=== PATIENT | male | born 1980 | race American Indian/Alaskan Native ===

== ENCOUNTER 2021-12-14 05:06 | Inpatient (IN) | payer MEDICARE, OTHER ==
[2021-12-14 05:18] VITALS: BP 146/71
[2021-12-14 05:59] LABS: Basophils # (Auto) 0.1 K/mm3 (0.0-0.1); Eosinophils % (Auto) 0.1 % (0.0-4.3); Hematocrit 47.2 % (35.5-45.6); Hemoglobin 16.1 gm/dl (11.8-15.2); Lymphocytes # (Auto) 2.7 K/mm3 (1.2-5.4); Lymphocytes % (Auto) 23.6 % (13.4-35.0); Mean Corpuscular HGB Conc 34 % (32-34); Mean Corpuscular Volume 91 fl (84-94); Monocytes # (Auto) 0.9 K/mm3 (0.0-0.8); Monocytes % (Auto) 7.7 % (0.0-7.3); Platelet Count 251 K/mm3 (140-440); Red Blood Count 5.17 M/mm3 (3.65-5.03); Red Cell Distribution Width 13.8 % (13.2-15.2)
--- NOTE | 2021-12-14 06:10 | XRay Report ---
ABDOMEN 4 VIEW(S) INDICATION / CLINICAL INFORMATION: abd pn. COMPARISON: None available. FINDINGS: TUBES / LINES: None. BOWEL GAS PATTERN: Small bowel is dilated with air-fluid levels. The stomach is also distended with f luid. The colon is normal in caliber. FREE AIR / EXTRALUMINAL GAS: None seen. ADDITIONAL FINDINGS: No significant additional findings. IMPRESSION: 1. Abnormal bowel gas pattern concerning for small bowel obstruction. Signer Name: Rob Rizzo MD Signed: 12/14/2021 6:06 AM Workstation Name: [id number]
[2021-12-14] MEDS ORDERED: MORPHINE 4 MG/1 ML INJ IV ONE (06:12)
[2021-12-14] MEDS ORDERED: ONDANSETRON 4 MG/2 ML INJ IV ONE (06:12)
[2021-12-14 06:18] LABS: Alanine Aminotransferase 24 units/L (7-56); Albumin 4.7 g/dL (3.9-5); BUN/Creatinine Ratio 15; Blood Urea Nitrogen 16 mg/dL (9-20); Calcium 9.6 mg/dL (8.4-10.2); Hemolysis Index 21
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
--- NOTE | 2021-12-14 07:23 | Cat Scan Report ---
CT ABDOMEN AND PELVIS WITH IV CONTRAST INDICATION: Pt complains of abd pain, eval for possible S.B.O.. COMPARISON: Radiographs earlier today TECHNIQUE: All CT scans at this facility use dose modulation, automated exposure control, iterative reconstructi on or weight based dosing, when appropriate, to reduce radiation dose to as low as reasonably achieva ble. FINDINGS: Lung Bases: No significant abnormality. Skeletal System: No acute abnormality. ABDOMEN: Liver: Steatosis. Gallbladder: No significant abnormality. Bile Ducts: No significant abnormality. Adrenals: No significant abnormality. Right Kidney: No significant abnormality. Left Kidney: No significant abnormality. Pancreas: No significant abnormality. Spleen: No significant abnormality. Upper GI tract: Stomach is distended with fluid. Proximal and mid small bowel are dilated fluid. Dist al small bowel is collapsed. Lymph Nodes: No significant adenopathy. Aorta: No significant abnormality. Additional Findings: No significant abnormality. PELVIS: Colon: No acute abnormality. Urinary Bladder and Distal Ureters: No significant abnormality. Appendix: No significant abnormality. Lymph Nodes: No significant adenopathy. Additional Findings: None. IMPRESSION: 1. Mid to distal small bowel obstruction. Signer Name: Rob Rizzo MD Signed: 12/14/2021 7:19 AM Workstation Name: [id number]
[2021-12-14 07:34] LABS: Bilirubin,Urine NEG (Negative); Blood,Urine NEG (Negative); Color,Urine Yellow (Yellow); Mucus,Urine FEW /HPF; Protein,Urine >500 mg/dL (Negative)
[2021-12-14] MEDS ORDERED: SODIUM CHLORIDE 0.9% 1000 ML 1,000 ML IV ONE (08:10)
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
[2021-12-14] MEDS ORDERED: ACETAMINOPHEN 325 MG TAB PO PRN (10:00)
[2021-12-14] MEDS ORDERED: NALOXONE 0.4 MG/1 ML INJ IV PRN (10:00)
[2021-12-14] MEDS ORDERED: MORPHINE 2 MG/1 ML INJ IV PRN (10:00)
[2021-12-14] MEDS ORDERED: ONDANSETRON 4 MG/2 ML INJ IV PRN (10:00)
[2021-12-14] MEDS ORDERED: METOCLOPRAMIDE 10 MG/2 ML INJ IV PRN (10:00)
[2021-12-14] MEDS ORDERED: D5W/0.9% NACL 1,000 ML IV SCH (10:00)
[2021-12-14] MEDS: FAMOTIDINE 20 MG/2 ML INJ IV SCH ×2 (10:10→13:09)
--- NOTE | 2021-12-14 12:26 | Consultation ---
History of Present Illness Consult date: 12/14/21 Reason for consult: abdominal pain Chief complaint: Partial small bowel obstruction - History of present illness History of present illness: This is a 41-year-old -[place] gentleman who has had 2 prior surgeries for umbilical hernia repair. He notes that the first 1 was done laparoscopically. The second 1 required an open exploration and larger piece of mesh. He currently is in the emergency room with the complaints of abdominal pain nausea and vomiting. CT of the abdomen is indicating that the patient has a distended stomach with some gastritis. It also is showing distended loop of m id jejunal small bowel with the process being adjacent to his prior repair. Patient had initially requested to be discharged from the emergency room and plan to go home to [place] 4 hours away. After further discussion however he was in agreement to be admitted for IV fluids and NG tube decompression. Medications and Allergies Allergies Allergy/AdvReac Type Severity Reaction Status Date / Time No Known Allergies Allergy Verified 12/14/21 05:08 Active Meds: Active Medications Acetaminophen (Acetaminophen 325 Mg Tab) 650 mg PO Q4H PRN PRN Reason: Pain MILD(1-3)/Fever >100.5/PRADHAN Famotidine (Famotidine 20 Mg/2 Ml Inj) 20 mg IV BID [facility] Last Admin: 12/14/21 10:10 Dose: 20 mg Heparin Sodium (Porcine) (Heparin 5,000 Unit/1 Ml Vial) 5,000 unit SUB-Q Q8HR [facility] Dextrose/Sodium Chloride (D5ns) 1,000 mls @ 75 mls/hr IV DIRECT [facility] Metoclopramide HCl (Metoclopramide 10 Mg/2 Ml Inj) 10 mg IV Q6H PRN PRN Reason: Nausea And Vomiting Morphine Sulfate (Morphine 2 Mg/1 Ml Inj) 2 mg IV Q4H PRN PRN Reason: Pain, Moderate (4-6) Naloxone HCl (Naloxone 0.4 Mg/1 Ml Inj) 0.1 mg IV Q2MIN PRN PRN Reason: Res Rate </= 8 or 02 SAT < 92% Ondansetron HCl (Ondansetron 4 Mg/2 Ml Inj) 4 mg IV Q4H PRN PRN Reason: Nausea And Vomiting Sodium Chloride (Sodium Chloride 0.9% 10 Ml Flush Syringe) 10 ml IV BID [facility] Last Admin: 12/14/21 10:10 Dose: 10 ml Sodium Chloride (Sodium Chloride 0.9% 10 Ml Flush Syringe) 10 ml IV PRN PRN PRN Reason: LINE FLUSH Exam Vital Signs Temp Pulse Resp BP Pulse Ox 98.0 F 97 H 19 146/71 97 12/14/21 05:08 12/14/21 05:08 12/14/21 05:08 12/14/21 05:08 12/14/21 05:08 - General physical appearance Positive: well developed - Eyes Positive: PERRL - Neck Positive: no masses, no bruits, trachea midline - Respiratory Positive: normal expansion - Cardiovascular Rhythm: regular - Extremities Extremities: no ischemia, No edema - Abdomen Abdomen: Present: soft, tender, distended - Neurologic Neurologic: alert and oriented to time, place and person, motor strength and sensation are grossly intact, CN II-XII intact Results - Labs 12/14/21 05:25 12/14/21 05:25 Abnormal lab results 12/14/21 12/14/21 Range/Units 05:25 05:25 WBC 11.4 H (4.5-11.0) K/mm3 RBC 5.17 H (3.65-5.03) M/mm3 Hgb 16.1 H (11.8-15.2) gm/dl Hct 47.2 H (35.5-45.6) % [place] % (Auto) 7.7 H (0.0-7.3) % [place] # (Auto) 0.9 H (0.0-0.8) K/mm3 Chloride 97.9 L (98-107) mmol/L Glucose 159 H (75-100) mg/dL Diabetes panel 12/14/21 Range/Units 05:25 Sodium 139 (137-145) mmol/L Potassium 4.2 (3.6-5.0) mmol/L Chloride 97.9 L (98-107) mmol/L Carbon Dioxide 26 (22-30) mmol/L BUN 16 (9-20) mg/dL Creatinine 1.1 (0.8-1.3) mg/dL Glucose 159 H (75-100) mg/dL Calcium 9.6 (8.4-10.2) mg/dL AST 18 (5-40) units/L ALT 24 (7-56) units/L Alkaline Phosphatase 70 (35-129) units/L Total Protein 7.9 (6.3-8.2) g/dL Albumin 4.7 (3.9-5) g/dL Calcium panel 12/14/21 Range/Units 05:25 Calcium 9.6 (8.4-10.2) mg/dL Albumin 4.7 (3.9-5) g/dL Pituitary panel 12/14/21 Range/Units 05:25 Sodium 139 (137-145) mmol/L Potassium 4.2 (3.6-5.0) mmol/L Chloride 97.9 L (98-107) mmol/L Carbon Dioxide 26 (22-30) mmol/L BUN 16 (9-20) mg/dL Creatinine 1.1 (0.8-1.3) mg/dL Glucose 159 H (75-100) mg/dL Calcium 9.6 (8.4-10.2) mg/dL Adrenal panel 12/14/21 Range/Units 05:25 Sodium 139 (137-145) mmol/L Potassium 4.2 (3.6-5.0) mmol/L Chloride 97.9 L (98-107) mmol/L Carbon Dioxide 26 (22-30) mmol/L BUN 16 (9-20) mg/dL Creatinine 1.1 (0.8-1.3) mg/dL Glucose 159 H (75-100) mg/dL Calcium 9.6 (8.4-10.2) mg/dL Total Bilirubin 0.60 (0.1-1.2) mg/dL AST 18 (5-40) units/L ALT 24 (7-56) units/L Alkaline Phosphatase 70 (35-129) units/L Total Protein 7.9 (6.3-8.2) g/dL Albumin 4.7 (3.9-5) g/dL Assessment and Plan Patient with partial small bowel obstruction. He is advised to not leave but rather to stay for IV fluids NG decompression and observation. He is initially agreeing to do this. We will continue to follow patient with you if he decides to stay.
--- NOTE | 2021-12-14 12:38 | XRay Report ---
ABDOMEN 1 VIEW(S) INDICATION / CLINICAL INFORMATION: NG tube. COMPARISON: None available. FINDINGS: TUBES / LINES: The nasogastric tube is coiled in the distal esophagus. Replacement is recommended. BOWEL GAS PATTERN: No significant abnormality. FREE AIR / EXTRALUMINAL GAS: None seen. ADDITIONAL FINDINGS: No significant additional findings. IMPRESSION: The nasogastric tube is coiled in the esophagus. Replacement is recommended. Signer Name: Justin Littlejohn Jr, MD Signed: 12/14/2021 12:34 PM Workstation Name: [id number]
[2021-12-14] MEDS ORDERED: HEPARIN 5,000 UNIT/1 ML VIAL SUB-Q SCH (14:00)
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
== END 2021-12-14 13:15 | disposition left against medical advice (07) | DRG 389 ==
LOC: ED 05:06 → 3A 09:42
PROVIDERS: ADMIT Internal Medicine; ATTEND Internal Medicine
DX: K56.600 Partial intestinal obstruction, unspecified as to cause (principal); R65.10 Systemic inflammatory response syndrome (SIRS) of non-infectious origin without acute organ dysfunction; I10 Essential (primary) hypertension; E66.01 Morbid (severe) obesity due to excess calories; Z68.38 Body mass index [BMI] 38.0-38.9, adult; Z53.29 Procedure and treatment not carried out because of patient's decision for other reasons
CPT/HCPCS: 36415; 74018; 74022; 74177; 80053; 81001; 83690; 85025; G0378; J3490; Q0162; J2270; J2405; J7030; Q9967